=== PATIENT | female | born 1995 | race Caucasian/White ===

== ENCOUNTER 2024-05-07 14:30 | Emergency (ER) | payer BC, MEDICAID ==
[~2024-05-07] VITALS: Ht 162.6 cm; Wt 59.0 kg
[2024-05-07] MEDS ORDERED: METHYLPREDNISOLONE 40MG/ML INJ IV ONE (14:45)
[2024-05-07] MEDS: METHYLPREDNISOLONE SOD SUCC 125MG/2ML (ACT-O-VIAL) IV NR (15:06)
[2024-05-07] MEDS: SODIUM CHLORIDE 0.9% 1,000 ML IV ONE ×2 (15:10→18:14)
[2024-05-07] MEDS: DIPHENHYDRAMINE 50MG/ML VIAL IV ONE ×2 (15:10→18:13)
[2024-05-07] MEDS: FAMOTIDINE 20MG/2ML VIAL IV ONE (15:10)
[2024-05-07] MEDS: EPINEPHRINE 1:1000 1 MG/ML AMP INJ ONE (16:12)
[2024-05-07] MEDS ORDERED: ALBUTEROL (0.083%) 2.5MG/3ML NEB HHN ONE (16:45)
[2024-05-07 17:48] LABS: HEMATOCRIT. 36.2 % (36.0-48.0); HEMOGLOBIN. 12.4 g/dL (12.0-16.0); MEAN CORPUSCULAR HGB CONC 34.1 g/dL (31.0-37.0); MEAN CORPUSCULAR VOLUME 87.8 fL (81.0-99.0); MEAN PLATELET VOLUME 8.6 fl (7.4-10.4); PLATELET 226 x1000/uL (130-400); RED BLOOD CELL COUNT 4.12 mill/uL (4.2-5.4); RED CELL DISTRIBUTION WIDTH 12.5 % (11.6-14.6); WHITE BLOOD COUNT 9.4 x1000/uL (4.5-11.0)
[2024-05-07] MEDS: ALBUTEROL (0.083%) 2.5MG/3ML NEB HHN ONE (17:50)
[2024-05-07 17:51] VITALS: PULSE 116; RESP 18; O2SAT 97
[2024-05-07 17:54] LABS: DIFFERENTIAL COMMENT 1
[2024-05-07 17:55] LABS: CHLORIDE 114 mEq/L (98-107); POTASSIUM 3.2 mEq/L (3.5-5.1); SODIUM 146 mEq/L (136-145)
[2024-05-07 17:56] LABS: CARBON DIOXIDE 22 mEq/L (21-32)
[2024-05-07 17:57] LABS: CALCIUM 9.2 mg/dL (8.7-10.4)
[2024-05-07 17:58] LABS: PROTHROMBIN TIME 11.6 sec (9.6-11.0)
[2024-05-07 18:01] LABS: CREATININE 0.9 mg/dL (0.6-1.0); GLUCOSE 149 mg/dL (70-105)
[2024-05-07 18:02] LABS: UREA NITROGEN BLOOD 9 mg/dL (9-23)
[2024-05-07 18:11] LABS: HCG SCREEN NEGATIVE
[2024-05-07] MEDS: HYDROXYZINE 25MG TABLET PO ONE (18:12)
[2024-05-07] MEDS: DIAZEPAM 5 MG/ML 2ML SYR IV ONE (18:14)
[2024-05-07] MEDS ORDERED: CLONIDINE 0.1MG TABLET PO PRN (18:15)
[2024-05-07] MEDS ORDERED: DOCUSATE SODIUM 100MG CAPSULE PO PRN (18:15)
[2024-05-07] MEDS ORDERED: MAGNESIUM/ALUMINUM HYDROXIDE/SIMETHICONE 30ML UDC PO PRN (18:15)
[2024-05-07] MEDS ORDERED: GUAIFENESIN 200MG/10ML SUGAR FREE UDC PO PRN (18:15)
[2024-05-07] MEDS ORDERED: NA PHOS,M-B/NA PHOS,DI-BA ENEMA 118ML PR PRN (18:15)
[2024-05-07] MEDS: TRANEXAMIC ACID 1,000MG/10ML IV ONE (18:24)
[2024-05-07] MEDS: ONDANSETRON HCL 4MG/2ML INJ IV ONE (19:19)
[2024-05-07] MEDS: POTASSIUM CHLORIDE 20MEQ TABLET SR PO NR (19:20)
[2024-05-07] MEDS: SODIUM CHLORIDE 0.45% 1,000 ML IV SCH (19:39)
[2024-05-07] MEDS ORDERED: EPINEPHRINE 1:1000 1 MG/ML AMP INJ PRN (19:45)
[2024-05-07] MEDS ORDERED: HYDROMORPHONE HCL/PF 2MG/ML INJ IV NR (20:00)
[2024-05-07] MEDS ORDERED: EPINEPHRINE 0.1MG/ML (1:10,000) 10ML SYR IV PRN ×2 (20:30→20:45)
[2024-05-07 20:36] LABS: PLATELET ESTIMATE NORMAL
[2024-05-07] MEDS: HYDROMORPHONE HCL/PF 1MG/ML INJ IV NR (20:45)
[2024-05-07] MEDS ORDERED: NALOXONE HCL 0.4MG/ML VIAL IV PRN (20:45)
[2024-05-07] MEDS: DIAZEPAM 5 MG/ML 2ML SYR IV SCH (21:01)
[2024-05-07 22:10] LABS: CLARITY URINE CLEAR (CLEAR); COLOR URINE YELLOW (YELLOW); GLUCOSE URINE NEGATIVE (NEGATIVE); KETONES URINE NEGATIVE (NEGATIVE); LEUKOCYTE ESTERASE URINE NEGATIVE (NEGATIVE); NITRITE URINE NEGATIVE (NEGATIVE); OCCULT BLOOD URINE NEGATIVE (NEGATIVE); PROTEIN URINE NEGATIVE (NEGATIVE); SPECIFIC GRAVITY URINE 1.008 (1.005-1.030); UROBILINOGEN URINE 0.2 E.U./dL (0.2-1.0)
[2024-05-08] MEDS: DIPHENHYDRAMINE 50MG/ML VIAL IV PRN (01:13)
[2024-05-08] MEDS: HYDROMORPHONE HCL/PF 2MG/ML INJ IV PRN (01:14)
[2024-05-08 04:46] LABS: BASOPHILS % 0.4 % (0.0-2.0); HEMATOCRIT. 32.6 % (36.0-48.0); HEMOGLOBIN. 11.3 g/dL (12.0-16.0); LYMPHOCYTES % 14.7 % (20.0-50.0); MEAN CORPUSCULAR HEMOGLOBIN 30.4 pg (28.0-32.0); MEAN CORPUSCULAR HGB CONC 34.7 g/dL (31.0-37.0); MEAN CORPUSCULAR VOLUME 87.7 fL (81.0-99.0); MEAN PLATELET VOLUME 8.6 fl (7.4-10.4); MONOCYTES % 6.5 % (2.0-8.0); NEUTROPHILS % 78.4 % (40.0-76.0); PLATELET 227 x1000/uL (130-400); RED BLOOD CELL COUNT 3.72 mill/uL (4.2-5.4); RED CELL DISTRIBUTION WIDTH 12.6 % (11.6-14.6); WHITE BLOOD COUNT 9.1 x1000/uL (4.5-11.0)
[2024-05-08 04:54] LABS: CHLORIDE 110 mEq/L (98-107); POTASSIUM 4.1 mEq/L (3.5-5.1); SODIUM 140 mEq/L (136-145)
[2024-05-08 04:55] LABS: CARBON DIOXIDE 24 mEq/L (21-32)
[2024-05-08 05:00] LABS: CREATININE 0.8 mg/dL (0.6-1.0); GLUCOSE 115 mg/dL (70-105)
[2024-05-08 05:01] LABS: UREA NITROGEN BLOOD 7 mg/dL (9-23)
[2024-05-08 07:28] VITALS: BP 127/87; TEMP 36.9; O2SAT 100
[2024-05-08] MEDS: FAMOTIDINE 20MG/2ML VIAL IV SCH (08:26)
[2024-05-08] MEDS: METHYLPREDNISOLONE SOD SUCC 40MG/ML (ACT-O-VIAL) IV SCH (08:26)
[2024-05-08] MEDS: DIPHENHYDRAMINE 50MG/ML VIAL IV SCH (08:26)
[2024-05-08 08:27] VITALS: PULSE 80; RESP 20; O2SAT 98
[2024-05-08] MEDS: ONDANSETRON HCL 4MG/2ML INJ IV PRN (08:27)
[2024-05-08] MEDS: BUDESONIDE 0.5MG/2ML NEB HHN SCH (08:27)
[2024-05-08] MEDS: IPRATROPIUM/ALBUTEROL 0.5-3(2.5)MG/3ML NEB HHN PRN (08:28)
[2024-05-08] MEDS ORDERED: HYDROMORPHONE HCL/PF 1MG/ML INJ IV PRN (10:30)
[2024-05-08] MEDS: ALENDRONATE SODIUM 35MG TABLET PO SCH (12:44)
[2024-05-08] MEDS: PREDNISONE 5MG TABLET PO SCH (12:44)
[2024-05-08] MEDS: HYDROXYCHLOROQUINE SULFATE 200MG TABLET PO SCH (12:44)
== END 2024-05-08 14:33 | disposition home or self-care (01) ==
LOC: ER 14:30 → EDBEDREQ 16:49 → EDBEDREQSVC 17:30 → EDBEDREQTM 17:30 → CANBEDREQ 05-08 13:52 → ER 05-08 14:33
DX: T78.2XXA Anaphylactic shock, unspecified, initial encounter (principal); D89.40 Mast cell activation, unspecified; D84.1 Defects in the complement system; F41.9 Anxiety disorder, unspecified; Z88.1 Allergy status to other antibiotic agents; Z88.0 Allergy status to penicillin; Z88.5 Allergy status to narcotic agent; Z88.6 Allergy status to analgesic agent; Z91.030 Bee allergy status; X58.XXXA Exposure to other specified factors, initial encounter; Y93.89 Activity, other specified; Y92.89 Other specified places as the place of occurrence of the external cause; Y99.8 Other external cause status
CPT/HCPCS: 80048 ×2; 81003; 84703; 85025 ×2; 85610; 36415 ×2; 71045; 94640; 93005; 96361 ×2; 96374; 96375; 96376 ×2; 99285; 94070; J3360 ×2; J1200 ×2; J3490 ×4; J2919; J2405 ×2; J1171 ×2; Z7610 ×7; J7030; J7512; J2920; J7626; A4606

== ENCOUNTER 2024-12-03 23:57 | Emergency (ER) | payer BC, MEDICAID ==
[~2024-12-03] VITALS: Ht 170.2 cm; Wt 62.0 kg
[2024-12-04] MEDS ORDERED: MORPHINE SULFATE 4 MG/ML INJ (FOR IV/IM USE) IV ONE (01:00)
[2024-12-04] MEDS: ACETAMINOPHEN 500MG TABLET PO ONE (01:15)
[2024-12-04] MEDS: ONDANSETRON 4MG ODT PO ONE (01:16)
[2024-12-04 02:19] LABS: BASOPHILS % 0.8 % (0.0-2.0); EOSINOPHILS % 1.7 % (0.0-5.0); HEMATOCRIT. 36.0 % (36.0-48.0); HEMOGLOBIN. 12.2 g/dL (12.0-16.0); LYMPHOCYTES % 38.8 % (20.0-50.0); MEAN PLATELET VOLUME 8.3 fl (7.4-10.4); MONOCYTES % 9.0 % (2.0-8.0); NEUTROPHILS % 49.7 % (40.0-76.0); PLATELET 233 x1000/uL (130-400); RED BLOOD CELL COUNT 4.23 mill/uL (4.2-5.4); RED CELL DISTRIBUTION WIDTH 12.8 % (11.6-14.6)
[2024-12-04 02:32] LABS: HCG SCREEN NEGATIVE
[2024-12-04 02:34] LABS: CREATININE 0.7 mg/dL (0.6-1.0); UREA NITROGEN BLOOD 7 mg/dL (9-23)
[2024-12-04 02:35] LABS: ETHANOL BLOOD < 10 mg/dL (<10)
[2024-12-04 02:36] LABS: ASPARTATE AMINOTRANSFERASE 13 IU/L (<34); BILIRUBIN DIRECT < 0.1 mg/dL (<=3.0)
[2024-12-04 02:37] LABS: BILIRUBIN TOTAL 0.4 mg/dL (0.1-1.0); PROTEIN TOTAL 6.4 g/dL (6.0-8.3)
[2024-12-04] MEDS: DIPHENHYDRAMINE 50MG/ML VIAL IV ONE (03:37)
[2024-12-04] MEDS: MORPHINE SULFATE 4 MG/ML INJ (FOR IV/IM USE) IV NR (03:37)
[2024-12-04] MEDS: SODIUM CHLORIDE 0.9% 1,000 ML IV ONE (03:38)
[2024-12-04] MEDS: DIPHENHYDRAMINE 50MG/ML VIAL IV NR (03:53)
[2024-12-04 04:21] VITALS: O2SAT 99
[2024-12-04] MEDS: MIDAZOLAM HCL 2 MG/2 ML VIAL IV ONE (04:21)
[2024-12-04] MEDS ORDERED: IOHEXOL-350 100 ML BOTTLE ONE (05:13)
[2024-12-04 05:17] VITALS: BP 109/63; PULSE 68; RESP 14; TEMP 36.7; O2SAT 99
[2024-12-04 05:41] LABS: INFLUENZA TYPE A Presumptive Negative (Pres. Neg.)
[2024-12-04 05:42] LABS: INFLUENZA TYPE B Presumptive Negative (Pres. Neg.); RESPIRATORY SYNCYTIAL VIRUS Not Detected (Not Detectd)
== END 2024-12-04 05:53 | disposition home or self-care (01) ==
LOC: ER 23:57 → CMPBEDREQ 12-04 07:37
DX: M25.562 Pain in left knee (principal); M54.2 Cervicalgia; R07.9 Chest pain, unspecified; R10.9 Unspecified abdominal pain; M81.0 Age-related osteoporosis without current pathological fracture; G70.00 Myasthenia gravis without (acute) exacerbation; Z79.01 Long term (current) use of anticoagulants; Z98.890 Other specified postprocedural states; Z88.0 Allergy status to penicillin; Z88.1 Allergy status to other antibiotic agents; Z88.5 Allergy status to narcotic agent; Z88.6 Allergy status to analgesic agent; Z91.018 Allergy to other foods; Z91.030 Bee allergy status; Z91.048 Other nonmedicinal substance allergy status; Z20.822 Contact with and (suspected) exposure to COVID-19; W01.0XXA Fall on same level from slipping, tripping and stumbling without subsequent striking against object, initial encounter; Y93.89 Activity, other specified; Y92.89 Other specified places as the place of occurrence of the external cause; Y99.8 Other external cause status
CPT/HCPCS: 99285; 80076; 80048; 80320; 82550; 84703; 83690; 83735; 85025; 87420; 87804 ×2; 36415; 74174; 71045; 73560; 71275; 70450; 72125; 96361; 96374; 96375; 87426; Q9967; Q0162; J1200; J2250; J2270; J7030; Z7610; G0480